=== PATIENT | female | born 1950 | race African-American/Black ===

== ENCOUNTER 2017-11-13 14:29 | Outpatient (CLI) | payer MEDICARE | END 2017-11-13 14:30 | disposition home or self-care (01) | LOC: BICMAMMO 14:29 | PROVIDERS: ATTEND Student in an Organized Health Care Education/Training Program | DX: Z12.31 Encounter for screening mammogram for malignant neoplasm of breast (principal); Z13.820 Encounter for screening for osteoporosis; Z80.3 Family history of malignant neoplasm of breast | CPT/HCPCS: 77063; 77067; 77080 ==

== ENCOUNTER 2018-06-11 09:02 | Outpatient (CLI) | payer MEDICARE ==
--- NOTE | 2018-06-11 10:16 | ULT ---
GALLBLADDER ULTRASOUND: HISTORY: Elevated LFTs. COMPARISON: None. TECHNIQUE: Utilizing a multihertz transducer, sonographic imaging of the gallbladder and right upper quadrant pe rformed in the longitudinal and transverse plane. FINDINGS: Increased echogenicity of the liver may be due to hepatic steatosis or hepatocellular disease. Subse quent evaluation for hepatic masses and intrahepatic biliary dilatation is limited. The contour of t he hepatic margin is maintained. The right hepatic lobe measures 20.7 cm. Suboptimal evaluation of the pancreas. Common bile duct diameter is 0.5 cm. No sonographic evidence of cholelithiasis, gallbladder wall thickening, or pericholecystic fluid. Negative Woo's sign. Main portal vein is patent. Appropriate directional flow. No evidence of hydronephrosis. The right kidney measures 12.1 x 4.6 x 4.5 cm. There is a cyst in th e lower pole of the right kidney measuring 3.3 x 3.4 x 3.6 cm. IMPRESSION: Increased echogenicity of the liver which may be due to hepatic steatosis or hepatocellular disease. If there is concern for hepatic masses, liver mass protocol CT can be performed. Correlation made w ith a CT angiogram of the chest from 11/09/2011 does suggest components of hepatic steatosis. POS: [facility]
== END 2018-06-11 09:03 | disposition home or self-care (01) ==
LOC: BICULT 09:02
PROVIDERS: ATTEND Family Medicine
DX: R74.0 Nonspecific elevation of levels of transaminase and lactic acid dehydrogenase [LDH] (principal); R93.2 Abnormal findings on diagnostic imaging of liver and biliary tract
CPT/HCPCS: 76705

== ENCOUNTER 2018-12-09 12:49 | Outpatient (CLI) | payer MEDICARE ==
--- NOTE | 2018-12-09 13:47 | MMO ---
Bilateral MAMMO Bilat Screen [facility]. CLINICAL HISTORY: Patient is 68 years old and is seen for screening. The patient has the following family history of breast cancer: sister, at age 65. The patient has no personal history of cancer. VIEWS: The views performed were: bilateral craniocaudal with tomosynthesis and bilateral mediolateral oblique with tomosynthesis. FILMS COMPARED: The present examination has been compared to prior imaging studies performed at 09/18/2016 and 11/13/2017. MAMMOGRAM FINDINGS: There are scattered fibroglandular densities. There are stable benign appearing calcifications seen in both breasts. There are no suspicious masses, suspicious calcifications, or new areas of architectural distortion. IMPRESSION: THERE IS NO MAMMOGRAPHIC EVIDENCE OF MALIGNANCY. A ROUTINE FOLLOW-UP MAMMOGRAM IN 1 YEAR IS RECOMMENDED. THE RESULTS OF THIS EXAM WERE SENT TO THE PATIENT. ACR BI-RADS Category 2 - Benign finding MAMMOGRAPHY NOTE: 1. A negative mammogram report should not delay a biopsy if a dominant of clinically suspicious mass is present. 2. Approximately 10% to 15% of breast cancers are not detected by mammography. 3. Adenosis and dense breasts may obscure an underlying neoplasm. Reported by: LIBBY LINDA MD Electonically Signed: [id number]
== END 2018-12-09 12:50 | disposition home or self-care (01) ==
LOC: BICMAMMO 12:49
PROVIDERS: ATTEND Family Medicine
DX: Z12.31 Encounter for screening mammogram for malignant neoplasm of breast (principal); Z80.3 Family history of malignant neoplasm of breast
CPT/HCPCS: 77063; 77067

== ENCOUNTER 2020-12-24 15:09 | Observation (INO) | payer MEDICARE ==
[2020-12-24 16:01] LABS: #Lymphocytes 1.6 thou/uL (1.20-3.40); #Monocytes 0.4 thou/uL (0.11-0.59); %Basophils 0.5 % (0.0-1.0); %Eosinophils 0.1 % (0.0-10.0); %Lymphocytes 15.9 % (21.0-51.0); %Monocytes 4.2 % (0.0-10.0); %Neutrophils 79.3 % (42.0-75.0); Hemoglobin 11.9 g/dL (12.0-16.0); Mean Corpuscular HGB CONC 30.7 g/dL (32.0-36.0); Mean Corpuscular Hemoglobin 24.9 pg (27.0-31.0); Mean Corpuscular Volume 81.3 fL (78.0-98.0); Mean Platelet Volume 7.8 fL (7.4-10.4); Platelet Count 311 thou/uL (130-400); RBC Distribution Width 14.4 % (11.5-14.5); Red Blood Cell (RBC) Count 4.77 mill/uL (4.20-5.40); White Blood Cell (WBC) Count 10.1 thou/uL (4.8-10.8)
[2020-12-24 16:25] LABS: ALT (SGPT) 11 U/L (8-55); AST (SGOT) 14 U/L (5-34); Albumin 4.1 g/dL (3.4-4.8); Alkaline Phosphatase 68 U/L (40-110); Anion Gap 15 mmol/L (10-20); BUN (Urea Nitrogen) 21 mg/dL (9.8-20.1); Bilirubin, Total 0.6 mg/dL (0.2-1.2); Calc. Creatinine Clearance 0 mL/min (70-130); Calcium 9.6 mg/dL (7.8-10.44); Carbon Dioxide 25 mmol/L (23-31); Chloride 101 mmol/L (98-107); Globulin 4.1 g/dL (2.4-3.5); Glucose 139 mg/dL (83-110); Lipase 9 U/L (8-78); Potassium 4.6 mmol/L (3.5-5.1); Protein, Total 8.2 g/dL (5.8-8.1); Sodium 136 mmol/L (136-145)
[2020-12-24] MEDS ORDERED: Ondansetron PF 4 MG/2 ML Vial ONE (17:02)
[2020-12-24] MEDS ORDERED: Aspirin Chewable 81 MG TAB ONE (17:02)
[2020-12-24] MEDS ORDERED: Nitroglycerin 2% Ointment 1 INCH/1 GM Packet ONE (17:02)
[2020-12-24] MEDS ORDERED: Acetaminophen 325 MG TAB PO PRN (18:23)
[2020-12-24] MEDS ORDERED: Senokot S 8.6-50 MG TAB PO PRN (18:23)
[2020-12-24] MEDS ORDERED: hydrALAZINE 20 MG/ML VIAL SLOW IVP PRN (18:25)
[2020-12-24] MEDS ORDERED: HumaLOG 300 UNITS/3 ML VIAL SC PRN ×2 (20:03)
[2020-12-24] MEDS ORDERED: Dextrose 50% Abboject 50 ML SYRINGE SLOW IVP PRN (20:03)
[2020-12-24] MEDS ORDERED: Dextrose 5% in Water 1,000 ML IV PRN (20:03)
[2020-12-24] MEDS ORDERED: Famotidine 20 MG TAB PO SCH (21:00)
[2020-12-24] MEDS ORDERED: Atorvastatin Calcium 40 MG TAB PO SCH (21:00)
[2020-12-24] MEDS: Atorvastatin Calcium 40 MG TAB PO SCH (22:03)
[2020-12-25 00:40] VITALS: BMI 36.1
[2020-12-25 05:09] LABS: #Basophils 0.1 thou/uL (0.0-0.2); #Eosinphils 0.1 thou/uL (0.0-0.7); #Lymphocytes 3.9 thou/uL (1.20-3.40); #Monocytes 0.9 thou/uL (0.11-0.59); #Neutrophils 5.8 thou/uL (1.40-6.50); %Basophils 0.6 % (0.0-1.0); %Eosinophils 0.6 % (0.0-10.0); %Lymphocytes 36.3 % (21.0-51.0); %Monocytes 8.1 % (0.0-10.0); %Neutrophils 54.4 % (42.0-75.0); Hemoglobin 10.8 g/dL (12.0-16.0); Mean Corpuscular HGB CONC 32.5 g/dL (32.0-36.0); Mean Corpuscular Hemoglobin 26.2 pg (27.0-31.0); Mean Corpuscular Volume 80.6 fL (78.0-98.0); Platelet Count 311 thou/uL (130-400); RBC Distribution Width 14.4 % (11.5-14.5); Red Blood Cell (RBC) Count 4.13 mill/uL (4.20-5.40); White Blood Cell (WBC) Count 10.6 thou/uL (4.8-10.8)
[2020-12-25 05:38] LABS: ALT (SGPT) 8 U/L (8-55); AST (SGOT) 12 U/L (5-34); Albumin 3.7 g/dL (3.4-4.8); Alkaline Phosphatase 57 U/L (40-110); Anion Gap 12 mmol/L (10-20); BUN (Urea Nitrogen) 25 mg/dL (9.8-20.1); Bilirubin, Total 0.5 mg/dL (0.2-1.2); Calc. Creatinine Clearance 54 mL/min (70-130); Calcium 9.5 mg/dL (7.8-10.44); Carbon Dioxide 25 mmol/L (23-31); Cardiac Risk 6.4 (Less than 4.5); Chloride 103 mmol/L (98-107); Cholesterol 225 mg/dl (< 200 Desired); Globulin 3.5 g/dL (2.4-3.5); Glucose 138 mg/dL (83-110); HDL Cholesterol 35 mg/dL (>60 Neg Risk); LDL Cholesterol, Calculated 161 mg/dL; Potassium 4.2 mmol/L (3.5-5.1); Protein, Total 7.2 g/dL (5.8-8.1); Sodium 136 mmol/L (136-145); Triglycerides 146 mg/dL (Less than 150)
[2020-12-25] MEDS: Enoxaparin Sodium 40 MG/0.4 ML SYRINGE SC SCH (09:21)
[2020-12-25] MEDS: Aspirin 325 mg Enteric Coated Tablet PO SCH (09:21)
[2020-12-25] MEDS ORDERED: Lisinopril 10 MG TAB PO SCH (13:00)
[2020-12-25] MEDS: Atorvastatin Calcium 40 MG TAB PO SCH (20:29)
[2020-12-25] MEDS ORDERED: Famotidine 20 MG TAB PO SCH (21:00)
[2020-12-26] MEDS: Aspirin 325 mg Enteric Coated Tablet PO SCH (08:51)
[2020-12-26] MEDS: Enoxaparin Sodium 40 MG/0.4 ML SYRINGE SC SCH (08:51)
[2020-12-26] MEDS ORDERED: Lisinopril 10 MG TAB PO SCH (09:00)
[2020-12-26 15:49] VITALS: BP 143/82; TEMP 97.3
== END 2020-12-26 18:50 | disposition home or self-care (01) ==
LOC: ERS 15:09 → 2SE 18:28 → INTOOBSV 18:28
PROVIDERS: ADMIT Internal Medicine; ATTEND Internal Medicine
DX: G43.909 Migraine, unspecified, not intractable, without status migrainosus (principal); R13.10 Dysphagia, unspecified; I11.9 Hypertensive heart disease without heart failure; E11.9 Type 2 diabetes mellitus without complications; E78.5 Hyperlipidemia, unspecified; M10.9 Gout, unspecified; E66.9 Obesity, unspecified; Z68.36 Body mass index [BMI] 36.0-36.9, adult; Z86.73 Personal history of transient ischemic attack (TIA), and cerebral infarction without residual deficits; Z79.4 Long term (current) use of insulin; Z79.82 Long term (current) use of aspirin; Z79.899 Other long term (current) drug therapy
CPT/HCPCS: 70450; 70551; 80053; 80061; 82962 ×3; 83690; 84484; 85025; 93005; 93306; 93880; 94760; 96372 ×2; 97116; 97139 ×5; G0378 ×4; 36415; 36416; 84443; 96374; J1650; J2405